=== PATIENT | female | born 1980 | race Caucasian/White ===

== ENCOUNTER → 2020-09-01 | Outpatient (CLI) | payer BC ==
--- NOTE | 2020-09-01 10:27 | USB ---
Reason for exam: clinical finding. History: Family history of breast cancer in paternal grandmother. Indicated problem(s): lump or thickening in the right breast. Physical Findings: Nurse did not find any significant physical abnormalities on exam. US Breast RT Technologist: Lawanda Soriano Right complete breast ultrasound includes all four quadrants, the retroareolar region and axilla. Finding demonstrates no cystic or solid lesion seen. These results were verbally communicated with the patient and result sheet given to the patient on 09/01/20. ASSESSMENT: Negative, BI-RAD 1 RECOMMENDATION: Routine screening mammogram of both breasts in 1 year. Manage patient on a clinical basis.
== END | disposition home or self-care (01) ==
LOC: RADUSWWP 08:50
PROVIDERS: ATTEND Family Medicine
DX: N63.10 Unspecified lump in the right breast, unspecified quadrant (principal)

== ENCOUNTER 2024-03-01 23:00 | Emergency (ER) | payer BC ==
--- NOTE | 2024-03-01 23:20 | XR ---
EXAMINATION TYPE: XR ankle limited LT DATE OF EXAM: 03/01/2024 CLINICAL HISTORY: fall injury tripping injury with dislocation. TECHNIQUE: Portable frontal and lateral images of the left ankle are attempted. COMPARISON: None. FINDINGS: Frontal view is suboptimal due to overlying gauze for bandage material. There is acute disp laced comminuted fracture through the lateral malleolus. There is tibiotalar joint dislocation with p osterior positioning of the talus relative to distal tibia. Moderate associated soft tissue swelling is seen. IMPRESSION: As above.
[2024-03-01 23:39] VITALS: TEMP 97.5
[2024-03-01] MEDS: PROPOFOL 10 MG/ML 20 ML VIAL IV ONE (23:57)
--- NOTE | 2024-03-02 00:17 | XR ---
EXAMINATION TYPE: XR ankle limited LT DATE OF EXAM: 03/02/2024 CLINICAL HISTORY: POST REDUCTION TECHNIQUE: Frontal and lateral images of the left ankle are obtained. COMPARISON: Left ankle xray one day earlier.. FINDINGS: There is new overlying fiberglass cast or splint material which is noted to lower radiogra phic sensitivity. There is improved tibiotalar alignment after reduction. There is still slight later al positioning of the talus relative to the distal tibia. There is medial mortise widening. Acute com minuted displaced fracture of the lateral malleolus is redemonstrated with some improved alignment af ter reduction. No new fractures are seen. IMPRESSION: As above.
--- NOTE | 2024-03-02 00:22 | ED ---
Lower Extremity Injury HPI - General Chief Complaint: Extremity Injury, Lower Stated Complaint: Left ankle injury Time Seen by Provider: 03/01/24 23:01 Source: patient, EMS Mode of arrival: EMS Limitations: no limitations - History of Present Illness Initial Comments: This patient is a 43-year-old woman who presents to have evaluation for left ankle pain and injury. Patient reports that she had missed stepped on the porch, felt a pop and then was not able to support herself on her foot. She was barely able to put any weight on her toes. EMS was called, placed a splint and transported the patient here. She denies previous injury or surgery on the left ankle. The patient does have sensation to the toes MD Complaint: ankle injury -: minutes(s) Injury: Ankle: Left Type of Injury: inversion Place: home Severity: severe Improves With: immobilization Worsens With: movement Context: fall Associated Symptoms: snap/pop sensation, unable to bear weight Treatments Prior to Arrival: splint - Related Data Home Medications Medication Instructions Recorded Confirmed NIFEdipine [NIFEdipine ER] 30 mg 08/12/14 08/12/14 Previous Rx's Medication Instructions Recorded HYDROcodone/APAP 5-325MG [[place] 1 tab PO Q4HR PRN 3 Days #18 tab 03/02/24 5-325] Allergies Allergy/AdvReac Type Severity Reaction Status Date / Time No Known Allergies Allergy Verified 03/01/24 23:07 Review of Systems ROS Statement: Those systems with pertinent positive or pertinent negative responses have been documented in the HPI. ROS Other: All systems not noted in ROS Statement are negative. Constitutional: Denies: fever Respiratory: Denies: cough, dyspnea Cardiovascular: Denies: chest pain, palpitations, edema Gastrointestinal: Denies: abdominal pain, nausea, vomiting, diarrhea Genitourinary: Denies: urgency, dysuria Musculoskeletal: Reports: as per HPI, joint swelling, arthralgia. Denies: back pain Skin: Denies: rash Neurological: Denies: headache, weakness, numbness, paresthesias Past Medical History Past Medical History: Hypertension Additional Past Medical History / Comment(s): Chronic hypertension on Procardia, gestational diabetes orally controlled. History of Any Multi-Drug Resistant Organisms: None Reported Past Surgical History: No Surgical Hx Reported Past Anesthesia/Blood Transfusion Reactions: No Reported Reaction Past Psychological History: No Psychological Hx Reported Past Alcohol Use History: None Reported Past Drug Use History: None Reported General Exam Limitations: no limitations General appearance: alert, in no apparent distress Head exam: Present: atraumatic, normocephalic Eye exam: Present: normal appearance. Absent: scleral icterus, conjunctival injection Neck exam: Present: normal inspection, full ROM. Absent: tenderness Respiratory exam: Present: normal lung sounds bilaterally. Absent: respiratory distress, wheezes, rales, rhonchi, stridor, chest wall tenderness, accessory muscle use Cardiovascular Exam: Present: regular rate, normal rhythm, normal heart sounds. Absent: systolic murmur, diastolic murmur, rubs, gallop GI/Abdominal exam: Present: soft. Absent: distended, tenderness, guarding, rebound, rigid, mass Extremities exam: Present: tenderness, normal capillary refill. Absent: full ROM, pedal edema Left Hip exam: Present: normal inspection, full ROM Upper Leg exam: Present: normal inspection, full ROM Knee exam: Present: normal inspection, full ROM Lower Leg exam: Present: normal inspection, full ROM Ankle exam: Present: tenderness, swelling, dislocation Foot/Toe exam: Present: normal inspection, full ROM. Absent: tenderness, swelling, abrasion, laceration, ecchymosis, deformity, crepitus, dislocation, erythema, amputation, puncture wound, foreign body, calcaneal tenderness, tenderness at base of 5th metatarsal, nail avulsion, subungual hematoma Neurovascular tendon exam: Present: no vascular compromise Back exam: Present: normal inspection. Absent: CVA tenderness (R), CVA tenderness (L), vertebral tenderness Neurological exam: Present: alert Skin exam: Present: warm, dry, intact, normal color. Absent: rash Course Vital Signs 03/01/24 03/01/24 03/02/24 23:01 23:56 00:00 Temperature 97.5 F L Pulse Rate 112 H 95 95 Respiratory 24 26 H 26 H Rate Blood Pressure 160/117 150/104 150/102 O2 Sat by Pulse 98 98 100 Oximetry 03/02/24 03/02/24 03/02/24 00:05 00:30 01:00 Temperature Pulse Rate 88 89 87 Respiratory 18 18 16 Rate Blood Pressure 121/88 137/95 123/87 O2 Sat by Pulse 100 99 98 Oximetry 04/06/24 04/06/24 04/06/24 01:30 02:00 03:00 Temperature Pulse Rate 81 109 H 106 H Respiratory 18 17 26 H Rate Blood Pressure 124/88 129/92 135/94 O2 Sat by Pulse 98 97 98 Oximetry 03/02/24 03:50 Temperature Pulse Rate 82 Respiratory 17 Rate Blood Pressure 134/90 O2 Sat by Pulse 99 Oximetry Procedures - Causey Protocol (Time Out) Procedure Performed:: L ankle Performing Provider: Ned Gayle Nurse: Yesi Aquino Respiratory Therapist: Lola Davis Patient Identification (2 identifiers required): Verbal, Arm Band, Name, Birthdate Site: L ankle Site Marked: No Site Verified With Patient/Guardian: Yes Final Confirmation: Site - Orthopedic Fracture Reduction Fracture #1 Consent Obtained: verbal consent Side: left Fracture Reduction Location: tibia, fibula Analgesia: procedural sedation Technique: traction/counter-traction Post Reduction X-rays Demonstrate: acceptable reduction Post-Reduction Neuro Exam: intact Post-Reduction Vascular Exam: intact Splint Applied: Yes Patient Tolerated Procedure: well, no complications - Orthopedic Splinting/Casting Injury #1 Side: left Lower Extremity Injury Location: ankle Lower Extremity Immobilizer: posterior splint, stirrup splint Other Orthopedic Equipment: crutches - Procedural Sedation *Procedural Sedation Start Time: 23:55 *Procedural Sedation Stop Time: 00:22 *Risks,benefits, and alternative therapies discussed?: Yes *Patient indicates understanding of risk/benefit discussion?: Yes *Indications: fracture/dislocation reduction *Previous Adverse Reaction to Anesthesia/Sedation?: No * Testing Complete?: No Reason Test Not Complete:: Emergent Situation *ASA Class: II *Mallampati Airway Score: 3 Preparation: bus driver/monitor applied, pulse oximeter, capnometry used, supplemental O2 applied, suction/airway equipment at bedside, IV secured IV Propofol Dose (mgs): 100 Complications: none Patient Tolerated Procedure: well, no complications Medical Decision Making - Medical Decision Making The patient had x-ray of the ankle which I interpreted as showing malleolus fracture with dislocation of the ankle The patient had x-ray of the ankle following splinting which I interpreted as showing better position of the foot on the ankle Was pt. sent in by a medical professional or institution (, PA, CHANNEL DEVELOPMENT DIRECTOR, urgent care, hospital, or long term...) When possible be specific @ -[No] Did you speak to anyone other than the patient for history (EMS, parent, family, police, friend...)? What history was obtained from this source @ -[EMS contributed to history Did you review nursing and triage notes (agree or disagree)? Why? @ -[I reviewed and agree with nursing and triage notes] Were old charts reviewed (outside hosp., previous admission, EMS record, old EKG, old radiological studies, urgent care reports/EKG's, long term records)? Report findings @ -[No old charts were reviewed] Differential Diagnosis (chest pain, altered mental status, abdominal pain women, abdominal pain men, vaginal bleeding, weakness, fever, dyspnea, syncope, headache, dizziness, GI bleed, back pain, seizure, CVA, palpatations, mental health, musculoskeletal)? @ -[Differential Musculoskeletal Muscular strain, contusion, ligament sprain, fracture, arthritis, septic arthritis, bursitis, cellulitis, muscle spasm, nerve compression, DVT, arterial occlusion, herpes zoster, electrolyte abnormality, tumor.... This is not meant to be in all inclusive list EKG interpreted by me (3pts min.). @ -[As above] X-rays interpreted by me (1pt min.). @ -Interpreted as above CT interpreted by me (1pt min.). @ -[None done] U/S interpreted by me (1pt. min.). @ -[None done] What testing was considered but not performed or refused? (CT, X-rays, U/S, labs)? Why? @ -[None] What meds were considered but not given or refused? Why? @ -[None] Did you discuss the management of the patient with other professionals (professionals i.e. , PA, CHANNEL DEVELOPMENT DIRECTOR, lab, RT, psych nurse, high school social science teacher, pharmacovigilance safety expert, teacher, ordnance officer, case advocate)? Give summary @ -[No] Was smoking cessation discussed for >3mins.? @ -[No] Was critical care preformed (if so, how long)? @ -[No] Were there social determinants of health that impacted care today? How? (Homelessness, low income, unemployed, alcoholism, drug addiction, transpo rtation, low edu. Level, literacy, decrease access to med. care, long-term, rehab)? @ -[No] Was there de-escalation of care discussed even if they declined (Discuss DNR or withdrawal of care, Hospice)? DNR status @ -[No] What co-morbidities impacted this encounter? (DM, HTN, Smoking, COPD, CAD, Cancer, CVA, ARF, Chemo, Hep., AIDS, mental health diagnosis, sleep apnea, morbid obesity)? @ -[None] Was patient admitted / discharged? Hospital course, mention meds given and route, prescriptions, significant lab abnormalities, going to OR and other pertinent info. @ -[The patient is a 43-year-old woman who presents to have evaluation for ankle injury. The patient does have ankle fracture with foot dislocation. I did perform procedural sedation followed by closed reduction and then splinting. The patient did have better anatomic position. At this point there is no evidence of developing compartment syndrome. The patient would prefer to go home and follow with the orthopedic clinic. We discussed appropriate further care and follow-up as well as return parameters. The patient does have previous relationship with Dr. Lopez and requested follow- up with him Undiagnosed new problem with uncertain prognosis? @ -[No] Drug Therapy requiring intensive monitoring for toxicity (Heparin, Nitro, Insulin, Cardizem)? @ -[No] Were any procedures done? @ -[Yes the patient had closed reduction and splinting performed by myself, see the notes. There is also procedural sedation. Diagnosis/symptom? @ -[Acute ankle fracture with foot dislocation. Acute, or Chronic, or Acute on Chronic? @ -[Acute] Uncomplicated (without systemic symptoms) or Complicated (systemic symptoms)? @ -[Uncomplicated Side effects of treatment? @ -[No] Exacerbation, Progression, or Severe Exacerbation? @ -[No] Poses a threat to life or bodily function? How? (Chest pain, [place], [place], pneumonia, PE, COPD, DKA, ARF, appy, cholecystitis, CVA, Diverticulitis, Homicidal, Suicidal, threat to staff... and all critical care pts) @ -[No] Disposition Clinical Impression: Fracture of ankle Disposition: HOME SELF-CARE Condition: Good Instructions (If sedation given, give patient instructions): Ankle Fracture (ED), Moderate Sedation (ED) Prescriptions: HYDROcodone/APAP 5-325MG [[place] 5-325] 1 tab PO Q4HR PRN 3 Days #18 tab PRN Reason: Pain Is patient prescribed a controlled substance at d/c from ED?: Yes When asked, does pt state using other controlled substances?: No If prescribed controlled substance>3 days was MAPS reviewed?: Prescribed <3 Days If opioid is for acute pain is fill amount 7 days or less?: Yes If Rx opioid, was Start Talking consent form obtained?: Yes Referrals: None,Stated [Primary Care Provider] - 1-2 days Jesus Lopez MD [STAFF PHYSICIAN] - 1-2 days
[2024-03-02] MEDS: PROPOFOL 10 MG/ML 20 ML VIAL IV ONE (01:03)
[2024-03-02 02:41] VITALS: RESP 17
[2024-03-02] MEDS: ONDANSETRON 4 MG/2 ML VIAL IVP STA (03:17)
[2024-03-02] MEDS: MORPHINE SULFATE 4 MG/ML SYRINGE IV STA (03:25)
[2024-03-02 04:43] VITALS: BP 134/90; PULSE 82
[2024-03-02] MEDS ORDERED: SODIUM CHLORIDE 0.9% 1,000 ML IV ONE (23:55)
== END 2024-03-02 03:50 | disposition home or self-care (01) ==
LOC: EC 23:00
DX: S82.892A Other fracture of left lower leg, initial encounter for closed fracture (principal); W01.0XXA Fall on same level from slipping, tripping and stumbling without subsequent striking against object, initial encounter
CPT/HCPCS: 99284; 27818; 96374; 96375; 99152; 73600 ×2; J2270; J2405; J2704

== ENCOUNTER → 2024-03-05 | Outpatient (CLI) | payer BC ==
--- NOTE | 2024-03-05 18:40 | CT ---
EXAMINATION TYPE: CT ankle LT wo con CT DLP: 281.80 mGycm, Automated exposure control for dose reduction was used. DATE OF EXAM: 03/05/2024 9:47 AM COMPARISON: Extremity radiograph 03/02/2024 CLINICAL INDICATION:Female, 43 years old with history of M25.572 Pain L ankle; PH[facility], LT ankle posterio r malleolar fibula fracture pre op TECHNIQUE: Axial images were obtained of the CT ankle LT wo con, Additional coronal and sagittal refo rmatted images and soft tissue and bone window were obtained for review. 3-D reconstruction was creat ed on a separate workstation. Contrast used: mL of , (None if empty) Oral contrast used: (None if empty) FINDINGS: Acute oblique fracture of the tibial plafond and of the tibia and distal aspect of the fibu la. There is approximately 2 mm displacement of both fracture fragments. There may be more than one f racture fragment of the posterior tibia plafond with intra-articular extension. No additional fractur es are visualized. There is mild multifocal degeneration changes throughout the joints of foot with j oint space narrowing and osteophyte formation. Subcutaneous edema seen throughout the foot. IMPRESSION: 1. Acute posterior tibial plafond fracture with intra-articular extension and mild displacement. 2. Acute distal fibular fracture with mild displacement.
== END | disposition home or self-care (01) ==
LOC: RADCTMAIN 09:21
PROVIDERS: ATTEND Orthopaedic Surgery
DX: S82.832A Other fracture of upper and lower end of left fibula, initial encounter for closed fracture (principal); S82.842A Displaced bimalleolar fracture of left lower leg, initial encounter for closed fracture; S82.872A Displaced pilon fracture of left tibia, initial encounter for closed fracture; X58.XXXA Exposure to other specified factors, initial encounter

== ENCOUNTER → 2024-05-14 | Outpatient (CLI) | payer BC ==
--- NOTE | 2024-05-14 13:15 | US ---
EXAMINATION TYPE: US venous doppler duplex LE LT DATE OF EXAM: 05/14/2024 12:58 PM COMPARISON: NONE CLINICAL INDICATION: Female, 43 years old with history of I809 PHLEBITIS AND THROMBOPHLEBITIS OF UNSP ECIFIED; Left lower leg swelling SIDE PERFORMED: Left TECHNIQUE: The lower extremity deep venous system is examined utilizing real time linear array sonog mariza with graded compression, doppler sonography and color-flow sonography. VESSELS IMAGED: Common Femoral Vein Deep Femoral Vein Greater Saphenous Vein * Femoral Vein Popliteal Vein Small Saphenous Vein * Proximal Calf Veins (* superficial vessels) Left Leg: Appears negative for DVT IMPRESSION: 1. Left lower extremity ultrasound negative for deep venous thrombosis.
== END | disposition home or self-care (01) ==
LOC: RADUSWWP 12:44
PROVIDERS: ATTEND Orthopaedic Surgery
DX: I80.9 Phlebitis and thrombophlebitis of unspecified site (principal); M79.89 Other specified soft tissue disorders; M25.572 Pain in left ankle and joints of left foot; S93.05XD Dislocation of left ankle joint, subsequent encounter; S82.842D Displaced bimalleolar fracture of left lower leg, subsequent encounter for closed fracture with routine healing; X58.XXXD Exposure to other specified factors, subsequent encounter